=== PATIENT | female | born 1990 | race Two or more races ===

== ENCOUNTER 2021-04-18 20:27 | Emergency (ER) | payer MEDICAID ==
[~2021-04-18] VITALS: Ht 154.9 cm; Wt 100.7 kg
[2021-04-18 20:50] VITALS: BP 146/98
[2021-04-18] MEDS ORDERED: ACETAMINOPHEN ES 500 MG TABLET PO ONE (21:00)
[2021-04-18] MEDS ORDERED: ACETAMINOPHEN ES 500 MG TABLET ONE (21:06)
== END 2021-04-18 22:17 | disposition home or self-care (01) ==
LOC: ER 20:31
DX: O9A.211 Injury, poisoning and certain other consequences of external causes complicating pregnancy, first trimester (principal); S39.012A Strain of muscle, fascia and tendon of lower back, initial encounter; S39.011A Strain of muscle, fascia and tendon of abdomen, initial encounter; Z3A.11 11 weeks gestation of pregnancy; V49.59XA Passenger injured in collision with other motor vehicles in traffic accident, initial encounter; Y93.89 Activity, other specified; Y92.413 State road as the place of occurrence of the external cause; Y99.8 Other external cause status
CPT/HCPCS: 76805-TC